=== PATIENT | male | born 1945 | race Hispanic/Latino ===

== ENCOUNTER 2017-04-20 11:00 | Observation (INO) | payer MEDICARE ==
[2017-04-20 11:13] VITALS: BMI 26.6
--- NOTE | 2017-04-20 11:24 | ED PDOC ---
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 Patient reports that his "knees gave out." Patient fell outside his apartment building and as he couldn't ambulate afterwards he was brought to ED. Patient notes he experiences dizziness episodes x months but has never been evaluated. Patient supposed to use a wheelchair but it broke 07/30. Patient has no current complaints. Patient denies any fever, chills, chest pain, shortness of breath, nausea, vomiting, diarrhea, back pain, neck pain, headache, or any other complaints. Time/Duration: Prior to Arrival Symptom Onset: Sudden Symptom Course: Unchanged Activities at Onset: Light Context: Walking Past Medical History - Provider Review Nursing Documentation Reviewed: Yes Family/Social History - Physician Review Nursing Documentation Reviewed: Yes Family/Social History: Unknown Family HX Allergies/Home Meds Allergies/Adverse Reactions: Allergies ciprofloxacin [From Cipro] Allergy (Verified 04/20/17 11:23) ANAPHYLAXIS clindamycin Allergy (Verified 04/20/17 11:23) ANAPHYLAXIS Home Medications: Home Meds Medication Instructions Recorded Confirmed Alprazolam [Xanax] 2 mg PO TID 04/20/17 04/20/17 Ketoconazole [Nizoral 120 ml] 120 ml TP DAILY 04/20/17 04/20/17 Review of Systems - Physician Review All systems were reviewed & negative as marked: Yes - Review of Systems Constitutional: Normal Eyes: Normal ENT: Normal Respiratory: Normal. absent: SOB, Cough Cardiovascular: Normal. absent: Chest Pain Gastrointestinal: Normal. absent: Abdominal Pain, Diarrhea, Nausea, Vomiting Genitourinary Male: Normal. absent: Dysuria, Frequency, Hematuria, Urinary Output Changes Musculoskeletal: Normal. absent: Back Pain, Neck Pain Skin: Normal. absent: Rash Neurological: Normal, Dizziness, Gait Changes. absent: Headache, Focal Weakness , Speech Changes, Facial Droop, Disequilibrium Endocrine: Normal Hemo/Lymphatic: Normal Psychiatric: Normal Physical Exam - Physical Exam Narrative Physical Exam (Text): 04/20/17 11:37 Constitutional: No acute distress. Head: Normocephalic. Atraumatic. Eyes: PERRL. Stigma. ENT: Moist mucous membranes. Neck: Supple. Cardiovascular: Regular rate. Chest: No tenderness. Respiratory: Clear to auscultation bilaterally. GI: Soft. Nontender. Nondistended. Back: No CVA tenderness. Musculoskeletal: No tenderness or swelling of extremities. Ecchymosis. Skin: No rash. Neurologic: Alert, no focal deficit. Vital Signs Temp Pulse Resp BP Pulse Ox 04/20/17 11:41 98.1 F 63 17 106/67 95 Temperature: Afebrile Blood Pressure: Normal Pulse: Regular Respiratory Rate: Normal Appearance: Positive for: Well-Appearing, Non-Toxic, Comfortable Pain Distress: None Mental Status: Positive for: Alert and Oriented X 3 - Systems Exam Head: Present: Atraumatic, Normocephalic Pupils: Present: PERRL Extroacular Muscles: Present: EOMI Conjunctiva: Present: Normal Ears: Present: NORMAL TM Mouth: Present: Moist Mucous Membranes Neck: Present: Normal Range of Motion. No: MIDLINE TENDERNESS Respiratory/Chest: Present: Clear to Auscultation, Good Air Exchange. No: Respiratory Distress, Accessory Muscle Use Cardiovascular: Present: Regular Rate and Rhythm, Normal S1, S2. No: Murmurs Abdomen: Present: Other (no bony hip tenderness). No: Tenderness, Distention Back: Present: Normal Inspection. No: Midline Tenderness Upper Extremity: Present: Normal Inspection, Normal ROM Lower Extremity: Present: Other (ecchymosis to b/l knees but normal strength and ROM while sitting in stretcher) Neurological: Present: GCS=15, CN II-XII Intact, Speech Normal, Motor Func Grossly Intact. No: Gait Normal (unsteady) Skin: Present: Warm, Dry. No: Rashes Psychiatric: Present: Alert, Oriented x 3 Medical Decision Making ED Course and Treatment: 04/20/17 11:24 Patient reporting that he fell because "knees are weak." Normal ROM and strength when lying on stretcher. However, cannot ambulate without swaying. Reports hx of similar episodes. Supposed to use a wheelchair but is non- compliant. hx of neuropathy and this could be his baseline. Patient PMD is Dr. Hernandez. 04/20/17 11:26 Impression: 71 year old male presents to the emergency department by EMS s/p fall. Plan: -- CT Head -- Chest X-ray -- Cardiac Enzymes -- Labs -- Antivert -- Reassess and disposition Progress Notes: 04/20/17 11:53 Chest X-ray reviewed, shows: LUNGS: No active pulmonary disease. PLEURA: No significant pleural effusion identified, no pneumothorax apparent. CARDIOVASCULAR: Normal. OSSEOUS STRUCTURES: No significant abnormalities. VISUALIZED UPPER ABDOMEN: Normal. OTHER FINDINGS: None. IMPRESSION: No active disease. 04/20/17 14:01 Patient is unable to ambulate around safely. He stood up and was unsteady on his feet. When tech and MD left he again tried to walk around and fell toward the wall of his room that stopped him from falling to the ground. His wheelchair is broken and he needs SW to help facilitate its repair as the [place] rep is not calling him back. Patient cannot be safely discharged and needs neurology evaluation. PT and SW consult placed 04/20/17 14:09 CT Head reviewed, shows: HEMORRHAGE: No intracranial hemorrhage. BRAIN: No mass effect or edema. No atrophy or chronic microvascular ischemic changes. VENTRICLES: Unremarkable. No hydrocephalus. CALVARIUM: Unremarkable. PARANASAL SINUSES: Unremarkable as visualized. No significant inflammatory changes. MASTOID AIR CELLS: Unremarkable as visualized. No inflammatory changes. OTHER FINDINGS: None. IMPRESSION: No acute findings - Lab Interpretations Lab Results: 04/20/17 11:40 04/20/17 11:40 Lab Results 04/20/17 11:40: PT 12.4, INR 1.08, APTT 29.9 04/20/17 11:40: Sodium 144, Potassium 4.0, Chloride 107, Carbon Dioxide 24, Anion Gap 17, BUN 24 H, Creatinine 0.9, Est GFR ( Amer) > 60, Est GFR ( Non-Af Amer) > 60, Random Glucose 171 H, Calcium 9.4, Total Bilirubin 0.6, AST 39, ALT 39, Alkaline Phosphatase 47, Total Creatine Kinase 412 H, CK-MB (CK-2) 6.3 H, CK-MB (CK-2) % 1.5 L, Troponin I 0.03, Total Protein 6.7, Albumin 4.0, Globulin 2.7, Albumin/Globulin Ratio 1.5 04/20/17 11:40: WBC 4.0 L, RBC 4.17, Hgb 13.2 L, Hct 38.2 L, MCV 91.6, MCH 31.7 , MCHC 34.6, RDW 13.2, Plt Count 165, MPV 9.9, Gran % 70.1 H, Lymph % (Auto) 20.7 L, [place] % (Auto) 8.1 H, Eos % (Auto) 0.8 L, Baso % (Auto) 0.3, Gran # 2.78 , Lymph # (Auto) 0.8 L, [place] # (Auto) 0.3, Eos # (Auto) 0.0, Baso # (Auto) 0.01 - RAD Interpretation Radiology Orders: 04/20/17 11:22 HEAD W/O CONTRAST [CT] Stat 04/20/17 11:23 CHEST PORTABLE [RAD] Stat - Medication Orders Current Medication Orders: Discontinued Medications Meclizine HCl (Antivert) 50 mg PO STAT STA Stop: 04/20/17 11:24 Last Admin: 04/20/17 11:41 Dose: 50 mg - Scribe Statement The provider has reviewed the documentation as recorded by the Shivibimmanuel Burns All medical record entries made by the Chelo were at my direction and personally dictated by me. I have reviewed the chart and agree that the record accurately reflects my personal performance of the history, physical exam, medical decision making, and the department course for this patient. I have also personally directed, reviewed, and agree with the discharge instructions and disposition. Disposition/Present on Arrival - Present on Arrival Any Indicators Present on Arrival: No - Disposition Have Diagnosis and Disposition been Completed?: Yes Diagnosis: Fall, Neuropathy Disposition: HOSPITALIZED Disposition Time: 14:03 Patient Plan: Observation Patient Problems: Current Active Problems Problem Status Onset Fall Acute Neuropathy Acute Condition: FAIR
[2017-04-20 11:54] LABS: BASO # 0.01 K/mm3 (0.0-2.0); BASO % 0.3 % (0.0-3.0); EOS % 0.8 % (1.5-5.0); GRAN # 2.78 (1.4-6.5); GRAN % 70.1 % (50.0-68.0); HEMOGLOBIN 13.2 g/dL (14.0-18.0); LYMPH # 0.8 (1.2-3.4); LYMPH % 20.7 % (22.0-35.0); MEAN CELL VOLUME 91.6 fl (80.0-105.0); MEAN CORPUSCULAR HEMOGLOBIN 31.7 pg (25.0-35.0); MEAN CORPUSCULAR HGB CONC 34.6 g/dl (31.0-37.0); MEAN PLATELET VOLUME 9.9 fl (7.0-11.0); MONO # 0.3 (0.1-0.6); MONO % 8.1 % (1.0-6.0); RBC 4.17 10^6/uL (3.5-6.1); RED CELL DISTRIBUTION WIDTH 13.2 % (11.5-14.5)
[2017-04-20 12:05] LABS: ALB/GLOB RATIO 1.5 (1.1-1.8); ALT/SGPT 39 U/L (7-56); AST/SGOT 39 U/L (17-59); BLOOD UREA NITROGEN 24 mg/dL (7-21); CALCIUM 9.4 mg/dL (8.4-10.5); GFR AFRICAN-AMERICAN > 60; GFR NON-AFRICAN AMERICAN > 60
[2017-04-20 12:14] LABS: TROPONIN I 0.03 ng/mL
[2017-04-20 12:16] LABS: INR 1.08 (0.93-1.08); PARTIAL THROMBOPLASTIN TIME 29.9 Seconds (25.1-36.5); PROTHROMBIN TIME 12.4 SECONDS (9.4-12.5)
[2017-04-20 12:24] LABS: CK MB% 1.5 % (2.5-3.0); CK-MB 6.3 ng/mL (0.0-3.6)
--- NOTE | 2017-04-20 12:33 | RAD ---
HISTORY: dizziness COMPARISON: No prior. FINDINGS: LUNGS: No active pulmonary disease. PLEURA: No significant pleural effusion identified, no pneumothorax apparent. CARDIOVASCULAR: Normal. OSSEOUS STRUCTURES: No significant abnormalities. VISUALIZED UPPER ABDOMEN: Normal. OTHER FINDINGS: None. IMPRESSION: No active disease.
--- NOTE | 2017-04-20 13:43 | CT ---
PROCEDURE: CT HEAD WITHOUT CONTRAST. HISTORY: fall, dizziness COMPARISON: None available. TECHNIQUE: Axial computed tomography images were obtained through the head/brain without intravenous contrast. Radiation dose: Total exam DLP = 1049 mGy-cm. This CT exam was performed using one or more of the following dose reduction techniques: Automated exposure control, adjustment of the mA and/or kV according to patient size, and/or use of iterative reconstruction technique. FINDINGS: HEMORRHAGE: No intracranial hemorrhage. BRAIN: No mass effect or edema. No atrophy or chronic microvascular ischemic changes. VENTRICLES: Unremarkable. No hydrocephalus. CALVARIUM: Unremarkable. PARANASAL SINUSES: Unremarkable as visualized. No significant inflammatory changes. MASTOID AIR CELLS: Unremarkable as visualized. No inflammatory changes. OTHER FINDINGS: None. IMPRESSION: No acute findings
--- NOTE | 2017-04-20 17:26 | CARD ---
APPROVED REPORT EKG Measurement Heart [id number] ND [id number] <Conclusion> Normal sinus rhythm with sinus arrhythmia Left ventricular hypertrophy with repolarization abnormality Abnormal ECG
--- NOTE | 2017-04-20 18:54 | CON ---
DATE: 04/20/2017 NEUROLOGY CONSULTATION CHIEF COMPLAINT: Frequent falls. 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 Apparently the patient told me he bent down , but he could not get off his knee and felt slightly weak, but otherwise no focal weakness of extremities. He has history of anxiety for which he is on Xanax. He does have chronic atrophy of his intrinsic muscles of his hands and his calf, pretty much barely any calf muscle and intrinsic muscle wasting of his both feet with neuropathy features on his lower extremities on examination as well as his upper extremities. CAT scan of the head showed no acute intracranial abnormalities. He is very noncompliant with followup with his neurologist. PAST MEDICAL HISTORY: Charcot-Ana Tooth disease, anxiety. ALLERGIES: CIPROFLOXACIN, CLINDAMYCIN. REVIEW OF SYSTEMS: A 14-point review of systems negative except as per the HPI. MEDICATIONS: Reviewed by nurse reconciliation sheet. SOCIAL HISTORY: Lives at home by himself. No illicit drug use, smoking or EtOH abuse. LABORATORY DATA: Sodium is 144, potassium 4, chloride of 107, carbon dioxide 24, BUN of 24, creatinine of 0.9, random glucose 171. PHYSICAL EXAMINATION: VITAL SIGNS: Temperature of 98.1, pulse rate 59, blood pressure 132/74, respiratory rate of 18, oxygen saturation 96% by room air. GENERAL: Patient is sitting up in bed, in no acute distress. HEENT: Head is atraumatic, normocephalic. PERRLA. Extraocular muscles intact. NECK: Supple. No JVD, no adenopathy noted. LUNGS: Clear to auscultation. No adventitious sounds. HEART: S1, S2, normal rate and rhythm. No murmurs, rubs or gallops. ABDOMEN: Soft, nontender, nondistended. Bowel sounds present. EXTREMITIES: No clubbing, no cyanosis. Peripheral pulses 2+ felt bilaterally. NEUROLOGIC: Patient is alert, oriented to person and place, not much to month or year. Hard of hearing. Recall after 5 minutes is 0/3. Poor attention span and slow thought process, has poor judgement at times. Speech is fluent without any errors. Cranial nerves II through XII intact. Motor: Severe atrophy of the intrinsic muscles of hands and feet, atrophy of the calf muscles and muscle wasting of lower extremities including high arch feet. Sensory: Decreased light touch and pinprick up to the calves bilaterally. Decreased vibration of toes. Proprioception is decreased in the lower extremities. DTRs are 1+ throughout and absent at the knees and ankles. Coordination: [id number] intact. Gait slightly is wide-based and unstable upon ambulation and needs assisted device such as at least a walker. ASSESSMENT AND PLAN: This is a 71-year-old man with history of anxiety, on Xanax; cognitive impairment; history of Charcot-Ana Tooth disease, diagnosed by his neurologist many years ago with atrophy of his intrinsic muscles of hands and as well as his calf muscles and his feet with features of neuropathy on neuro examination with sensory and motor neuropathy findings on the neuro exam who presents with fall, difficulty to get up, currently had fallen outside his building. 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 He does not do any physical therapy. RECOMMENDATIONS: At this time, recommend: 1. At least a walker/wheelchair. 2. Physical therapy assessment, likely benefit from subacute rehab and continue to monitor electrolytes and correct accordingly. No further neurological workup needed. He can follow up with his neurologist , but we will definitely recommend physical therapy evaluation and social group worker evaluation for home care needs and safety measures. Thank you for this consult. Adama Carrillo MD
[2017-04-20 19:41] VITALS: O2SAT 95
[2017-04-20] MEDS ORDERED: Influenza Vaccine 60 mcg/0.5 mL SYR (4YR UP) IM ONE (22:43)
[2017-04-20] MEDS ORDERED: Pneumococcal 23-Valent Vaccine IM ONE (22:43)
[2017-04-21 08:26] VITALS: BP 117/66; PULSE 50; RESP 20; TEMP 97.2
--- NOTE | 2017-04-21 13:35 | MRI ---
PROCEDURE: MRI BRAIN WITHOUT CONTRAST HISTORY: FALL COMPARISON: None. TECHNIQUE: Multiplanar, multisequence MR images of the brain were obtained without intravenous contrast enhancement. FINDINGS: HEMORRHAGE: None DWI: No evidence of an acute or early subacute infarction. BRAIN PARENCHYMA: No mass effect or edema. 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 VENTRICLES: Unremarkable. No hydrocephalus. CRANIUM: Unremarkable. ORBITS: Grossly unremarkable. PARANASAL SINUSES/MASTOIDS: Clear VASCULAR SYSTEM: Skull base flow voids intact. OTHER FINDINGS: None. 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
== END 2017-04-21 14:07 | disposition home or self-care (01) ==
LOC: ED 11:00 → ERH 14:01 → 3RNO 18:40
PROVIDERS: ADMIT Internal Medicine; ATTEND Internal Medicine
DX: G60.0 Hereditary motor and sensory neuropathy (principal); R29.6 Repeated falls; W19.XXXA Unspecified fall, initial encounter; Z91.19 Patient's noncompliance with other medical treatment and regimen; Z99.3 Dependence on wheelchair; Z88.1 Allergy status to other antibiotic agents; Z87.892 Personal history of anaphylaxis
CPT/HCPCS: 70450; 70551; 71045; 80053; 82550; 82553; 84484; 85025; 85610; 85730; 93005; 99285; G0378